=== PATIENT | male | born 1960 | race African-American/Black ===

== ENCOUNTER 2022-06-12 08:20 | Inpatient (IN) | payer OTHER ==
[2022-06-12 09:04] VITALS: BMI 18.3
[2022-06-12] MEDS ORDERED: METHOCARBAMOL 500 MG TABLET PO PRN (09:31)
[2022-06-12] MEDS ORDERED: ACETAMINOPHEN 325 MG TABLET (FP) PO PRN ×2 (09:31)
[2022-06-12] MEDS ORDERED: MAGNESIUM HYDROX 2400MG/30ML ORAL SUSPENSION 30 ML CUP PO PRN (09:31)
[2022-06-12] MEDS ORDERED: DICYCLOMINE HCL 10 MG CAPSULE PO PRN (09:31)
[2022-06-12] MEDS ORDERED: IBUPROFEN 400 MG TABLET (FP) PO PRN (09:31)
[2022-06-12] MEDS ORDERED: BENZOCAINE/MENTHOL (CHLORASEPTIC ) LOZENGE MM PRN (09:31)
[2022-06-12] MEDS ORDERED: LOPERAMIDE HCL 2 MG CAPSULE PO PRN (09:31)
[2022-06-12] MEDS ORDERED: IBUPROFEN 600 MG TABLET (FP) PO PRN (09:31)
[2022-06-12] MEDS ORDERED: NICOTINE 10 MG CARTRIDGE (INHALER) IH PRN (09:31)
[2022-06-12] MEDS ORDERED: ONDANSETRON *ODT* 4 MG TABLET SL PRN (09:31)
[2022-06-12] MEDS ORDERED: MAGNESIUM CITRATE 300 ML BOTTLE PO PRN (09:31)
[2022-06-12] MEDS ORDERED: chlordiazePOXIDE HCL 25 MG CAPSULE PO PRN (09:31)
[2022-06-12] MEDS ORDERED: BISMUTH SUBSALICYLATE 262 MG/15 ML BTL PO PRN (09:31)
[2022-06-12] MEDS ORDERED: MAG HYDROX/AL HYDROX/SIMETH 30 ML UNIT-DOSE CUP PO PRN (09:31)
[2022-06-12] MEDS ORDERED: ALBUTEROL SO4 HFA INHALER IH PRN (10:27)
[2022-06-12] MEDS ORDERED: CHOLECALCIFEROL (VIT D3) 400 UNIT (10 MCG) TABLET PO SCH (10:30)
[2022-06-12] MEDS ORDERED: chlordiazePOXIDE HCL 25 MG CAPSULE PO SCH (11:00)
[2022-06-12] MEDS: SULFAMETHOXAZOLE/TRIMETHOPRIM 800MG/160MG D.S. TABLET PO SCH ×2 (12:07→23:35)
[2022-06-12] MEDS: PRENATAL VITAMINS W/ FOLIC ACID TABLET (FP) PO SCH (12:08)
[2022-06-12] MEDS: hydrOXYzine PAMOATE 25 MG CAPSULE (FP) PO SCH ×4 (12:08→23:36)
[2022-06-12] MEDS: chlordiazePOXIDE HCL 25 MG CAPSULE PO SCH ×3 (12:08→23:35)
[2022-06-12] MEDS: NICOTINE 14 MG/24 HOURS TOPICAL PATCH TD SCH (12:09)
[2022-06-12 15:16] LABS: HEMATOCRIT 39.5 % (35.4-49); HEMOGLOBIN 13.5 GM/dL (11.7-16.9); MCH 29.9 pg (25.7-33.7); MCHC 34.1 g/dl (32.0-35.9); MEAN CELL VOLUME 87.7 fl (80-96); MEAN PLT VOLUME 9.2 fl (7.5-11.1); PLATELET COUNT 216 10^3/uL (134-434); RDW 14.5 % (11.9-15.9); WHITE BLOOD COUNT 7.8 K/mm3 (4.0-10.0)
[2022-06-12 15:36] LABS: CALCIUM 8.7 mg/dL (8.5-10.1)
[2022-06-12 15:37] LABS: ALBUMIN 3.1 g/dl (3.4-5.0); BLOOD UREA NITROGEN 13.9 mg/dL (7-18)
[2022-06-12 15:40] LABS: CREATININE 0.8 mg/dL (0.55-1.3)
[2022-06-12 15:41] LABS: BILIRUBIN,TOTAL 0.7 mg/dL (0.2-1); TOT PROT 8.5 g/dl (6.4-8.2)
[2022-06-12] MEDS: THIAMINE HCL 100 MG TABLET (FP) PO SCH (23:35)
[2022-06-12] MEDS: MELATONIN 5 MG TABLETS PO SCH (23:35)
[2022-06-12] MEDS: ROSUVASTATIN CA 20 MG TABLET PO SCH (23:35)
[2022-06-13] MEDS: hydrOXYzine PAMOATE 25 MG CAPSULE (FP) PO SCH ×5 (05:33→22:36)
[2022-06-13] MEDS: chlordiazePOXIDE HCL 25 MG CAPSULE PO SCH (05:33)
[2022-06-13] MEDS ORDERED: LORazepam 1 MG TABLET PO PRN (10:48)
[2022-06-13] MEDS: PRENATAL VITAMINS W/ FOLIC ACID TABLET (FP) PO SCH (11:14)
[2022-06-13] MEDS: BICTEGRAV/EMTRICIT/TENOFOV (BIKTARVY) 50-200-25 MG TABLET PO SCH (11:15)
[2022-06-13] MEDS: NICOTINE 14 MG/24 HOURS TOPICAL PATCH TD SCH (11:15)
[2022-06-13] MEDS: PANTOPRAZOLE 20 MG TABLET PO SCH (11:15)
[2022-06-13] MEDS: SULFAMETHOXAZOLE/TRIMETHOPRIM 800MG/160MG D.S. TABLET PO SCH ×2 (11:15→22:36)
[2022-06-13] MEDS: LORazepam 2 MG TABLET PO SCH ×3 (11:17→22:36)
[2022-06-13] MEDS: ROSUVASTATIN CA 20 MG TABLET PO SCH (22:36)
[2022-06-13] MEDS: MELATONIN 5 MG TABLETS PO SCH (22:36)
[2022-06-13] MEDS: THIAMINE HCL 100 MG TABLET (FP) PO SCH (22:36)
[2022-06-14] MEDS ORDERED: chlordiazePOXIDE HCL 25 MG CAPSULE PO SCH (05:00)
[2022-06-14] MEDS: hydrOXYzine PAMOATE 25 MG CAPSULE (FP) PO SCH ×5 (06:05→22:22)
[2022-06-14] MEDS: LORazepam 2 MG TABLET PO SCH ×4 (06:05→22:21)
[2022-06-14] MEDS: BICTEGRAV/EMTRICIT/TENOFOV (BIKTARVY) 50-200-25 MG TABLET PO SCH (10:34)
[2022-06-14] MEDS: NICOTINE 14 MG/24 HOURS TOPICAL PATCH TD SCH (10:34)
[2022-06-14] MEDS: PRENATAL VITAMINS W/ FOLIC ACID TABLET (FP) PO SCH (10:34)
[2022-06-14] MEDS: SULFAMETHOXAZOLE/TRIMETHOPRIM 800MG/160MG D.S. TABLET PO SCH ×2 (10:34→22:20)
[2022-06-14] MEDS: PANTOPRAZOLE 20 MG TABLET PO SCH (10:34)
[2022-06-14] MEDS: THIAMINE HCL 100 MG TABLET (FP) PO SCH (22:20)
[2022-06-14] MEDS: ROSUVASTATIN CA 20 MG TABLET PO SCH (22:21)
[2022-06-14] MEDS: MELATONIN 5 MG TABLETS PO SCH (22:22)
[2022-06-15] MEDS ORDERED: chlordiazePOXIDE HCL 10 MG CAPSULE PO PRN
[2022-06-15] MEDS ORDERED: chlordiazePOXIDE HCL 10 MG CAPSULE PO SCH (05:00)
[2022-06-15] MEDS: LORazepam 1 MG TABLET PO SCH ×3 (07:21→17:57)
[2022-06-15] MEDS: hydrOXYzine PAMOATE 25 MG CAPSULE (FP) PO SCH ×4 (07:21→17:57)
[2022-06-15 09:35] VITALS: RESP 18
[2022-06-15] MEDS: SULFAMETHOXAZOLE/TRIMETHOPRIM 800MG/160MG D.S. TABLET PO SCH (10:24)
[2022-06-15] MEDS: BICTEGRAV/EMTRICIT/TENOFOV (BIKTARVY) 50-200-25 MG TABLET PO SCH (10:24)
[2022-06-15] MEDS: PRENATAL VITAMINS W/ FOLIC ACID TABLET (FP) PO SCH (10:24)
[2022-06-15] MEDS: NICOTINE 14 MG/24 HOURS TOPICAL PATCH TD SCH (10:25)
[2022-06-15] MEDS: PANTOPRAZOLE 20 MG TABLET PO SCH (10:25)
[2022-06-15 17:25] VITALS: BP 163/91; PULSE 74; TEMP 98.2
[2022-06-16] MEDS ORDERED: LORazepam 0.5 MG TABLET PO PRN
[2022-06-16] MEDS ORDERED: LORazepam 0.5 MG TABLET PO SCH (05:00)
[2022-06-16] MEDS ORDERED: chlordiazePOXIDE HCL 10 MG CAPSULE PO SCH (05:00)
[2022-06-17] MEDS ORDERED: LORazepam 0.5 MG TABLET PO ONE (05:00)
[2022-06-17] MEDS ORDERED: chlordiazePOXIDE HCL 10 MG CAPSULE PO ONE (05:00)
== END 2022-06-15 19:46 | disposition left against medical advice (07) | DRG 770 ==
LOC: YASAS 08:20 → Y3N 09:47
PROVIDERS: ADMIT Allergy & Immunology; ATTEND Surgery
PROC: HZ2ZZZZ Detoxification Services for Substance Abuse Treatment (ICD-10-PCS; principal; 2022-06-12)
DX: F10.230 Alcohol dependence with withdrawal, uncomplicated (principal); F12.20 Cannabis dependence, uncomplicated; F17.210 Nicotine dependence, cigarettes, uncomplicated; I10 Essential (primary) hypertension; E78.5 Hyperlipidemia, unspecified; J45.909 Unspecified asthma, uncomplicated; Z21 Asymptomatic human immunodeficiency virus [HIV] infection status; K21.9 Gastro-esophageal reflux disease without esophagitis; Z88.8 Allergy status to other drugs, medicaments and biological substances
CPT/HCPCS: 36415; 80053; 85027; 86780; 87811; 93005; 93010; C9803-CS; U0003; U0005

== ENCOUNTER 2022-08-22 11:03 | Inpatient (IN) | payer OTHER ==
[2022-08-22 12:40] VITALS: BMI 18.1
[2022-08-22] MEDS ORDERED: ALBUTEROL SO4 HFA INHALER IH PRN (12:57)
[2022-08-22] MEDS ORDERED: CHOLECALCIFEROL (VIT D3) 400 UNIT (10 MCG) TABLET PO SCH (13:00)
[2022-08-22] MEDS ORDERED: IBUPROFEN 400 MG TABLET (FP) PO PRN (13:03)
[2022-08-22] MEDS ORDERED: NALOXONE HCL (KLOXXADO) 8 MG SPRAY NS PRN (13:03)
[2022-08-22] MEDS ORDERED: P-EPHED 60MG/TRIPROLIDI 2.5MG TABLET PO PRN (13:03)
[2022-08-22] MEDS ORDERED: METHOCARBAMOL 500 MG TABLET PO PRN (13:03)
[2022-08-22] MEDS ORDERED: guaiFENesin 200 MG/10 ML 10 ML UNIT-DOSE CUPS PO PRN (13:03)
[2022-08-22] MEDS ORDERED: MAG HYDROX/AL HYDROX/SIMETH 30 ML UNIT-DOSE CUP PO PRN (13:03)
[2022-08-22] MEDS ORDERED: ONDANSETRON *ODT* 4 MG TABLET SL PRN (13:03)
[2022-08-22] MEDS ORDERED: BENZOCAINE/MENTHOL (CHLORASEPTIC ) LOZENGE MM PRN (13:03)
[2022-08-22] MEDS ORDERED: MAGNESIUM CITRATE 300 ML BOTTLE PO PRN (13:03)
[2022-08-22] MEDS ORDERED: IBUPROFEN 600 MG TABLET (FP) PO PRN (13:03)
[2022-08-22] MEDS ORDERED: NALOXONE HCL 0.4 MG/ML VIAL IM PRN (13:03)
[2022-08-22] MEDS ORDERED: ACETAMINOPHEN 325 MG TABLET (FP) PO PRN ×2 (13:03)
[2022-08-22] MEDS ORDERED: DICYCLOMINE HCL 10 MG CAPSULE PO PRN (13:03)
[2022-08-22] MEDS ORDERED: MAGNESIUM HYDROX 2400MG/30ML ORAL SUSPENSION 30 ML CUP PO PRN (13:03)
[2022-08-22] MEDS ORDERED: BISMUTH SUBSALICYLATE 524 MG/30 ML PO PRN (13:03)
[2022-08-22] MEDS ORDERED: LOPERAMIDE HCL 2 MG CAPSULE PO PRN (13:03)
[2022-08-22] MEDS ORDERED: MELATONIN 5 MG TABLETS PO PRN (13:03)
[2022-08-22] MEDS ORDERED: NICOTINE POLACRILEX 2 MG GUM BUC PRN (13:03)
[2022-08-22] MEDS ORDERED: diazePAM 5 MG TABLET PO PRN (13:05)
[2022-08-22] MEDS: BICTEGRAV/EMTRICIT/TENOFOV (BIKTARVY) 50-200-25 MG TABLET PO SCH (15:00)
[2022-08-22] MEDS: hydrOXYzine PAMOATE 25 MG CAPSULE (FP) PO PRN (15:00)
[2022-08-22] MEDS: diazePAM 5 MG TABLET PO SCH ×2 (17:18→22:19)
[2022-08-22] MEDS: BACITRACIN 15 GM TUBE TOPICAL OINTMENT TP SCH (22:19)
[2022-08-22] MEDS: THIAMINE HCL 100 MG TABLET (FP) PO SCH (22:19)
[2022-08-22] MEDS: TOLNAFTATE 1% CREAM 15 GM TUBE TP SCH (22:20)
[2022-08-23] MEDS: diazePAM 5 MG TABLET PO SCH ×4 (05:15→22:43)
[2022-08-23 09:58] LABS: ALBUMIN 2.9 g/dl (3.4-5.0); CALCIUM 8.9 mg/dL (8.5-10.1)
[2022-08-23 10:02] LABS: HEMATOCRIT 37.5 % (35.4-49); HEMOGLOBIN 12.5 GM/dL (11.7-16.9); MCH 29.6 pg (25.7-33.7); MCHC 33.3 g/dl (32.0-35.9); MEAN CELL VOLUME 88.9 fl (80-96); MEAN PLT VOLUME 8.7 fl (7.5-11.1); PLATELET COUNT 250 10^3/uL (134-434); RBC 4.22 M/mm3 (4.00-5.60); RDW 14.5 % (11.9-15.9); TOT PROT 7.1 g/dl (6.4-8.2); WHITE BLOOD COUNT 4.7 K/mm3 (4.0-10.0)
[2022-08-23 10:04] LABS: BILIRUBIN,TOTAL 0.4 mg/dL (0.2-1)
[2022-08-23] MEDS: BACITRACIN 15 GM TUBE TOPICAL OINTMENT TP SCH ×2 (10:09→22:42)
[2022-08-23] MEDS: TOLNAFTATE 1% CREAM 15 GM TUBE TP SCH ×2 (10:10→22:42)
[2022-08-23] MEDS: BICTEGRAV/EMTRICIT/TENOFOV (BIKTARVY) 50-200-25 MG TABLET PO SCH (10:10)
[2022-08-23] MEDS: PANTOPRAZOLE 20 MG TABLET PO SCH (10:11)
[2022-08-23] MEDS: PRENATAL VITAMINS W/ FOLIC ACID TABLET (FP) PO SCH (10:13)
[2022-08-23] MEDS ORDERED: PNEUMOC 20-VAL CONJ-DIP CRM/PF 0.5 ML SYRINGE IM ONE (12:00)
[2022-08-23] MEDS: hydrOXYzine PAMOATE 25 MG CAPSULE (FP) PO PRN (17:28)
[2022-08-23] MEDS: THIAMINE HCL 100 MG TABLET (FP) PO SCH (22:42)
[2022-08-24] MEDS: diazePAM 5 MG TABLET PO SCH ×2 (07:00→13:47)
[2022-08-24] MEDS: BICTEGRAV/EMTRICIT/TENOFOV (BIKTARVY) 50-200-25 MG TABLET PO SCH (07:02)
[2022-08-24 09:19] VITALS: RESP 17
[2022-08-24] MEDS: PRENATAL VITAMINS W/ FOLIC ACID TABLET (FP) PO SCH (10:21)
[2022-08-24] MEDS: PANTOPRAZOLE 20 MG TABLET PO SCH (10:22)
[2022-08-24] MEDS: TOLNAFTATE 1% CREAM 15 GM TUBE TP SCH (10:22)
[2022-08-24] MEDS: BACITRACIN 15 GM TUBE TOPICAL OINTMENT TP SCH (10:23)
[2022-08-24] MEDS ORDERED: FLU VACC QS2022-23(6MOS UP)/PF 60 MCG/0.5 ML SYRINGE IM ONE (12:00)
[2022-08-24 14:07] VITALS: BP 132/81; PULSE 85; TEMP 97.4
[2022-08-25] MEDS ORDERED: diazePAM 5 MG TABLET PO SCH (06:00)
[2022-08-26] MEDS ORDERED: diazePAM 5 MG TABLET PO ONE (06:00)
== END 2022-08-24 15:15 | disposition left against medical advice (07) | DRG 770 ==
LOC: YASAS 11:03 → Y6N 13:57
PROVIDERS: ADMIT Allergy & Immunology; ATTEND Surgery
PROC: HZ2ZZZZ Detoxification Services for Substance Abuse Treatment (ICD-10-PCS; principal; 2022-08-22)
DX: F10.230 Alcohol dependence with withdrawal, uncomplicated (principal); F14.20 Cocaine dependence, uncomplicated; F17.210 Nicotine dependence, cigarettes, uncomplicated; F25.9 Schizoaffective disorder, unspecified; F19.24 Other psychoactive substance dependence with psychoactive substance-induced mood disorder; Z21 Asymptomatic human immunodeficiency virus [HIV] infection status; I10 Essential (primary) hypertension; J45.909 Unspecified asthma, uncomplicated; K21.9 Gastro-esophageal reflux disease without esophagitis; L85.3 Xerosis cutis
CPT/HCPCS: 36415; 80053; 85027; 90677; C9803-CS; U0003; U0005

== ENCOUNTER 2022-09-25 13:06 | Inpatient (IN) | payer OTHER ==
[2022-09-25 15:20] VITALS: BMI 18.7
[2022-09-25] MEDS ORDERED: DICYCLOMINE HCL 10 MG CAPSULE PO PRN (16:51)
[2022-09-25] MEDS ORDERED: NICOTINE 10 MG CARTRIDGE (INHALER) IH PRN (16:51)
[2022-09-25] MEDS ORDERED: MAG HYDROX/AL HYDROX/SIMETH 30 ML UNIT-DOSE CUP PO PRN (16:51)
[2022-09-25] MEDS ORDERED: NALOXONE HCL (KLOXXADO) 8 MG SPRAY NS PRN (16:51)
[2022-09-25] MEDS ORDERED: ACETAMINOPHEN 325 MG TABLET (FP) PO PRN ×2 (16:51)
[2022-09-25] MEDS ORDERED: hydrOXYzine PAMOATE 25 MG CAPSULE (FP) PO PRN (16:51)
[2022-09-25] MEDS ORDERED: chlordiazePOXIDE HCL 25 MG CAPSULE PO PRN (16:51)
[2022-09-25] MEDS ORDERED: IBUPROFEN 600 MG TABLET (FP) PO PRN (16:51)
[2022-09-25] MEDS ORDERED: BENZOCAINE/MENTHOL (CHLORASEPTIC ) LOZENGE MM PRN (16:51)
[2022-09-25] MEDS ORDERED: LOPERAMIDE HCL 2 MG CAPSULE PO PRN (16:51)
[2022-09-25] MEDS ORDERED: MAGNESIUM HYDROX 2400MG/30ML ORAL SUSPENSION 30 ML CUP PO PRN (16:51)
[2022-09-25] MEDS ORDERED: BISMUTH SUBSALICYLATE 524 MG/30 ML PO PRN (16:51)
[2022-09-25] MEDS ORDERED: MAGNESIUM CITRATE 300 ML BOTTLE PO PRN (16:51)
[2022-09-25] MEDS ORDERED: ONDANSETRON *ODT* 4 MG TABLET SL PRN (16:51)
[2022-09-25] MEDS ORDERED: METHOCARBAMOL 500 MG TABLET PO PRN (16:51)
[2022-09-25] MEDS ORDERED: IBUPROFEN 400 MG TABLET (FP) PO PRN (16:51)
[2022-09-25] MEDS ORDERED: ALBUTEROL SO4 HFA INHALER IH PRN (16:57)
[2022-09-25] MEDS ORDERED: diphenhydrAMINE HCL 25 MG CAPSULE (FP) PO ONE ×2 (17:51→17:53)
[2022-09-25] MEDS ORDERED: chlordiazePOXIDE HCL 25 MG CAPSULE ONE ×2 (17:51→23:33)
[2022-09-25] MEDS: chlordiazePOXIDE HCL 25 MG CAPSULE PO SCH ×2 (17:56→23:35)
[2022-09-25] MEDS: MELATONIN 5 MG TABLETS PO SCH (23:35)
[2022-09-25] MEDS: THIAMINE HCL 100 MG TABLET (FP) PO SCH (23:35)
[2022-09-26] MEDS: NICOTINE 14 MG/24 HOURS TOPICAL PATCH TD SCH ×2 (04:56→09:53)
[2022-09-26] MEDS: ROSUVASTATIN CA 20 MG TABLET PO SCH ×2 (04:57→22:10)
[2022-09-26] MEDS: CLOTRIMAZOLE 10 MG TROCHE PO SCH ×3 (04:59→22:10)
[2022-09-26] MEDS ORDERED: chlordiazePOXIDE HCL 25 MG CAPSULE ONE (05:00)
[2022-09-26] MEDS: chlordiazePOXIDE HCL 25 MG CAPSULE PO SCH ×4 (05:22→22:09)
[2022-09-26] MEDS: BICTEGRAV/EMTRICIT/TENOFOV (BIKTARVY) 50-200-25 MG TABLET PO SCH (09:55)
[2022-09-26] MEDS: PANTOPRAZOLE 20 MG TABLET PO SCH (09:56)
[2022-09-26] MEDS: PRENATAL VITAMINS W/ FOLIC ACID TABLET (FP) PO SCH (09:58)
[2022-09-26] MEDS ORDERED: MINERAL OIL/PET HY-PHL TOPICAL OINTMENT 454 GM JAR TP SCH (10:00)
[2022-09-26] MEDS ORDERED: SOMATROPIN 6 MG SQ SCH (10:00)
[2022-09-26] MEDS ORDERED: CHOLECALCIFEROL (VIT D3) 400 UNIT (10 MCG) TABLET PO SCH (10:00)
[2022-09-26 11:13] LABS: HEMATOCRIT 38.7 % (35.4-49); HEMOGLOBIN 12.7 GM/dL (11.7-16.9); MCH 28.6 pg (25.7-33.7); MCHC 32.8 g/dl (32.0-35.9); MEAN CELL VOLUME 87.1 fl (80-96); MEAN PLT VOLUME 9.3 fl (7.5-11.1); PLATELET COUNT 241 10^3/uL (134-434); RBC 4.45 M/mm3 (4.00-5.60); RDW 14.3 % (11.9-15.9)
[2022-09-26 12:43] LABS: ALBUMIN 3.1 g/dl (3.4-5.0); CALCIUM 8.9 mg/dL (8.5-10.1)
[2022-09-26 12:44] LABS: BLOOD UREA NITROGEN 15.7 mg/dL (7-18)
[2022-09-26 12:46] LABS: CREATININE 0.9 mg/dL (0.55-1.3)
[2022-09-26 12:48] LABS: BILIRUBIN,TOTAL 0.4 mg/dL (0.2-1); TOT PROT 7.3 g/dl (6.4-8.2)
[2022-09-26] MEDS: PETROLATUM,WHITE OINTMENT 3.5 OZ JAR TP SCH (15:27)
[2022-09-26] MEDS: MELATONIN 5 MG TABLETS PO SCH (22:10)
[2022-09-26] MEDS: THIAMINE HCL 100 MG TABLET (FP) PO SCH (22:10)
[2022-09-27] MEDS: chlordiazePOXIDE HCL 25 MG CAPSULE PO SCH ×4 (05:16→22:23)
[2022-09-27] MEDS: PETROLATUM,WHITE OINTMENT 3.5 OZ JAR TP SCH (10:08)
[2022-09-27] MEDS: PRENATAL VITAMINS W/ FOLIC ACID TABLET (FP) PO SCH (10:10)
[2022-09-27] MEDS: PANTOPRAZOLE 20 MG TABLET PO SCH (10:10)
[2022-09-27] MEDS: CLOTRIMAZOLE 10 MG TROCHE PO SCH ×2 (10:10→22:26)
[2022-09-27] MEDS: BICTEGRAV/EMTRICIT/TENOFOV (BIKTARVY) 50-200-25 MG TABLET PO SCH (10:10)
[2022-09-27] MEDS: NICOTINE 14 MG/24 HOURS TOPICAL PATCH TD SCH (10:13)
[2022-09-27] MEDS ORDERED: COLLOIDAL OATMEAL 1 BAR EACH TP PRN (10:53)
[2022-09-27] MEDS: THIAMINE HCL 100 MG TABLET (FP) PO SCH (22:22)
[2022-09-27] MEDS: ROSUVASTATIN CA 20 MG TABLET PO SCH (22:22)
[2022-09-27] MEDS: MELATONIN 5 MG TABLETS PO SCH (22:24)
[2022-09-28] MEDS ORDERED: chlordiazePOXIDE HCL 10 MG CAPSULE PO PRN
[2022-09-28 01:40] VITALS: RESP 18; TEMP 97.8
[2022-09-28] MEDS ORDERED: chlordiazePOXIDE HCL 10 MG CAPSULE PO SCH (05:00)
[2022-09-28 06:07] VITALS: BP 121/70; PULSE 86
[2022-09-29] MEDS ORDERED: chlordiazePOXIDE HCL 10 MG CAPSULE PO SCH (05:00)
[2022-09-30] MEDS ORDERED: chlordiazePOXIDE HCL 10 MG CAPSULE PO ONE (05:00)
== END 2022-09-28 07:15 | disposition left against medical advice (07) | DRG 774 ==
LOC: YASAS 13:06 → Y3N 09-26 09:21
PROVIDERS: ADMIT Allergy & Immunology; ATTEND Surgery
PROC: HZ2ZZZZ Detoxification Services for Substance Abuse Treatment (ICD-10-PCS; principal; 2022-09-26)
DX: F10.230 Alcohol dependence with withdrawal, uncomplicated (principal); F14.20 Cocaine dependence, uncomplicated; F12.20 Cannabis dependence, uncomplicated; F17.210 Nicotine dependence, cigarettes, uncomplicated; Z21 Asymptomatic human immunodeficiency virus [HIV] infection status; E78.5 Hyperlipidemia, unspecified; I10 Essential (primary) hypertension; J45.909 Unspecified asthma, uncomplicated; K21.9 Gastro-esophageal reflux disease without esophagitis; F91.8 Other conduct disorders; Z91.199 Patient's noncompliance with other medical treatment and regimen due to unspecified reason; Z91.018 Allergy to other foods
CPT/HCPCS: 36415; 80053; 85027; 86780; C9803-CS; U0003; U0005

== ENCOUNTER 2022-12-12 15:09 | Inpatient (IN) | payer OTHER ==
[2022-12-12 17:34] VITALS: BMI 19.2
[2022-12-12] MEDS ORDERED: LOPERAMIDE HCL 2 MG CAPSULE PO PRN (20:11)
[2022-12-12] MEDS ORDERED: BISMUTH SUBSALICYLATE 524 MG/30 ML PO PRN (20:11)
[2022-12-12] MEDS ORDERED: MAGNESIUM HYDROX 2400MG/30ML ORAL SUSPENSION 30 ML CUP PO PRN (20:11)
[2022-12-12] MEDS ORDERED: MAG HYDROX/AL HYDROX/SIMETH 30 ML UNIT-DOSE CUP PO PRN (20:11)
[2022-12-12] MEDS ORDERED: NICOTINE POLACRILEX 2 MG GUM BUC PRN (20:11)
[2022-12-12] MEDS ORDERED: IBUPROFEN 400 MG TABLET (FP) PO PRN (20:11)
[2022-12-12] MEDS ORDERED: NALOXONE HCL (KLOXXADO) 8 MG SPRAY NS PRN (20:11)
[2022-12-12] MEDS ORDERED: BENZOCAINE/MENTHOL (CHLORASEPTIC ) LOZENGE MM PRN (20:11)
[2022-12-12] MEDS ORDERED: IBUPROFEN 600 MG TABLET (FP) PO PRN (20:11)
[2022-12-12] MEDS ORDERED: ACETAMINOPHEN 325 MG TABLET (FP) PO PRN (20:11)
[2022-12-12] MEDS ORDERED: POLYETHYLENE GLYCOL (HEALTHYLAX) 3350 17 GM PACKET PO PRN (20:11)
[2022-12-12] MEDS ORDERED: ONDANSETRON *ODT* 4 MG TABLET SL PRN (20:11)
[2022-12-12] MEDS ORDERED: DICYCLOMINE HCL 10 MG CAPSULE PO PRN (20:11)
[2022-12-12] MEDS ORDERED: ALBUTEROL SO4 HFA INHALER IH PRN (20:14)
[2022-12-12] MEDS: THIAMINE HCL 100 MG TABLET (FP) PO SCH (22:11)
[2022-12-12] MEDS: MELATONIN 5 MG TABLETS PO SCH (22:11)
[2022-12-13] MEDS: BICTEGRAV/EMTRICIT/TENOFOV (BIKTARVY) 50-200-25 MG TABLET PO SCH (11:00)
[2022-12-13] MEDS: NICOTINE 14 MG/24 HOURS TOPICAL PATCH TD SCH (11:00)
[2022-12-13] MEDS: PANTOPRAZOLE 20 MG TABLET PO SCH (11:00)
[2022-12-13] MEDS: PRENATAL VITAMINS W/ FOLIC ACID TABLET (FP) PO SCH (11:00)
[2022-12-13 11:55] LABS: HEMATOCRIT 34.1 % (35.4-49); HEMOGLOBIN 11.6 GM/dL (11.7-16.9); MCHC 34.1 g/dl (32.0-35.9); MEAN CELL VOLUME 88.1 fl (80-96); MEAN PLT VOLUME 9.1 fl (7.5-11.1); PLATELET COUNT 240 10^3/uL (134-434); RBC 3.88 M/mm3 (4.00-5.60); RDW 14.1 % (11.9-15.9); WHITE BLOOD COUNT 6.5 K/mm3 (4.0-10.0)
[2022-12-13 12:10] LABS: ALBUMIN 2.8 g/dl (3.4-5.0); BLOOD UREA NITROGEN 12.6 mg/dL (7-18)
[2022-12-13 12:13] LABS: CREATININE 0.9 mg/dL (0.55-1.3)
[2022-12-13 12:14] LABS: TOT PROT 7.1 g/dl (6.4-8.2)
[2022-12-13 12:17] LABS: BILIRUBIN,TOTAL 0.4 mg/dL (0.2-1)
[2022-12-13] MEDS: MELATONIN 5 MG TABLETS PO SCH (22:25)
[2022-12-13] MEDS: THIAMINE HCL 100 MG TABLET (FP) PO SCH (22:25)
[2022-12-13] MEDS: METHOCARBAMOL 500 MG TABLET PO PRN (22:25)
[2022-12-13] MEDS: hydrOXYzine PAMOATE 25 MG CAPSULE (FP) PO PRN (22:25)
[2022-12-13] MEDS ORDERED: ALBUTEROL SO4 HFA INHALER IH PRN (23:09)
[2022-12-13] MEDS ORDERED: chlordiazePOXIDE HCL 25 MG CAPSULE PO PRN (23:11)
[2022-12-13] MEDS: ROSUVASTATIN CA 20 MG TABLET PO SCH (23:43)
[2022-12-13] MEDS: chlordiazePOXIDE HCL 25 MG CAPSULE PO SCH (23:43)
[2022-12-13] MEDS: ACETAMINOPHEN 325 MG TABLET (FP) PO PRN (23:50)
[2022-12-14] MEDS: chlordiazePOXIDE HCL 25 MG CAPSULE PO SCH ×4 (05:38→22:09)
[2022-12-14] MEDS: METHOCARBAMOL 500 MG TABLET PO PRN (10:13)
[2022-12-14] MEDS: PANTOPRAZOLE 20 MG TABLET PO SCH (10:13)
[2022-12-14] MEDS: BICTEGRAV/EMTRICIT/TENOFOV (BIKTARVY) 50-200-25 MG TABLET PO SCH (10:13)
[2022-12-14] MEDS: PRENATAL VITAMINS W/ FOLIC ACID TABLET (FP) PO SCH (10:13)
[2022-12-14] MEDS: ACETAMINOPHEN 325 MG TABLET (FP) PO PRN (10:16)
[2022-12-14] MEDS: NICOTINE 14 MG/24 HOURS TOPICAL PATCH TD SCH (11:14)
[2022-12-14] MEDS: CLOTRIMAZOLE 10 MG TROCHE PO SCH ×2 (11:47→22:07)
[2022-12-14] MEDS: MELATONIN 5 MG TABLETS PO SCH (22:08)
[2022-12-14] MEDS: THIAMINE HCL 100 MG TABLET (FP) PO SCH (22:08)
[2022-12-14] MEDS: ROSUVASTATIN CA 20 MG TABLET PO SCH (22:08)
[2022-12-15] MEDS: chlordiazePOXIDE HCL 25 MG CAPSULE PO SCH ×4 (06:17→22:08)
[2022-12-15] MEDS: BICTEGRAV/EMTRICIT/TENOFOV (BIKTARVY) 50-200-25 MG TABLET PO SCH (10:41)
[2022-12-15] MEDS: NICOTINE 14 MG/24 HOURS TOPICAL PATCH TD SCH (10:41)
[2022-12-15] MEDS: CLOTRIMAZOLE 10 MG TROCHE PO SCH ×2 (10:41→22:27)
[2022-12-15] MEDS: PANTOPRAZOLE 20 MG TABLET PO SCH (10:41)
[2022-12-15] MEDS: PRENATAL VITAMINS W/ FOLIC ACID TABLET (FP) PO SCH (10:42)
[2022-12-15] MEDS: ACETAMINOPHEN 325 MG TABLET (FP) PO PRN ×2 (11:31→23:29)
[2022-12-15] MEDS: ROSUVASTATIN CA 20 MG TABLET PO SCH (22:26)
[2022-12-15] MEDS: MELATONIN 5 MG TABLETS PO SCH (22:27)
[2022-12-15] MEDS: THIAMINE HCL 100 MG TABLET (FP) PO SCH (22:27)
[2022-12-16] MEDS ORDERED: chlordiazePOXIDE HCL 10 MG CAPSULE PO PRN
[2022-12-16] MEDS: chlordiazePOXIDE HCL 10 MG CAPSULE PO SCH ×4 (05:28→22:04)
[2022-12-16] MEDS: ACETAMINOPHEN 325 MG TABLET (FP) PO PRN (10:16)
[2022-12-16] MEDS: PRENATAL VITAMINS W/ FOLIC ACID TABLET (FP) PO SCH (10:16)
[2022-12-16] MEDS: BICTEGRAV/EMTRICIT/TENOFOV (BIKTARVY) 50-200-25 MG TABLET PO SCH (10:18)
[2022-12-16] MEDS: hydrOXYzine PAMOATE 25 MG CAPSULE (FP) PO PRN (10:42)
[2022-12-16] MEDS: NICOTINE 14 MG/24 HOURS TOPICAL PATCH TD SCH (10:42)
[2022-12-16] MEDS: PANTOPRAZOLE 20 MG TABLET PO SCH (10:42)
[2022-12-16] MEDS: METHOCARBAMOL 500 MG TABLET PO PRN (10:42)
[2022-12-16] MEDS: CLOTRIMAZOLE 10 MG TROCHE PO SCH ×2 (10:46→22:04)
[2022-12-16] MEDS: THIAMINE HCL 100 MG TABLET (FP) PO SCH (22:03)
[2022-12-16] MEDS: ROSUVASTATIN CA 20 MG TABLET PO SCH (22:03)
[2022-12-16] MEDS: MELATONIN 5 MG TABLETS PO SCH (22:28)
[2022-12-17] MEDS: chlordiazePOXIDE HCL 10 MG CAPSULE PO SCH ×2 (05:52→17:58)
[2022-12-17] MEDS: ACETAMINOPHEN 325 MG TABLET (FP) PO PRN ×2 (10:04→17:59)
[2022-12-17] MEDS: NICOTINE 14 MG/24 HOURS TOPICAL PATCH TD SCH (10:07)
[2022-12-17] MEDS: PANTOPRAZOLE 20 MG TABLET PO SCH (10:07)
[2022-12-17] MEDS: METHOCARBAMOL 500 MG TABLET PO PRN ×2 (10:07→22:29)
[2022-12-17] MEDS: PRENATAL VITAMINS W/ FOLIC ACID TABLET (FP) PO SCH (10:07)
[2022-12-17] MEDS: BICTEGRAV/EMTRICIT/TENOFOV (BIKTARVY) 50-200-25 MG TABLET PO SCH (10:07)
[2022-12-17] MEDS: hydrOXYzine PAMOATE 25 MG CAPSULE (FP) PO PRN ×2 (10:07→22:29)
[2022-12-17] MEDS: CLOTRIMAZOLE 10 MG TROCHE PO SCH ×2 (10:08→22:29)
[2022-12-17] MEDS: MELATONIN 5 MG TABLETS PO SCH (22:29)
[2022-12-17] MEDS: ROSUVASTATIN CA 20 MG TABLET PO SCH (22:29)
[2022-12-17] MEDS: THIAMINE HCL 100 MG TABLET (FP) PO SCH (22:29)
[2022-12-18] MEDS ORDERED: chlordiazePOXIDE HCL 10 MG CAPSULE PO ONE (05:00)
[2022-12-18 09:17] VITALS: BP 157/95; PULSE 84; RESP 18; TEMP 98.6
[2022-12-18] MEDS: BICTEGRAV/EMTRICIT/TENOFOV (BIKTARVY) 50-200-25 MG TABLET PO SCH (09:32)
[2022-12-18] MEDS: hydrOXYzine PAMOATE 25 MG CAPSULE (FP) PO PRN (09:32)
[2022-12-18] MEDS: PANTOPRAZOLE 20 MG TABLET PO SCH (09:32)
[2022-12-18] MEDS: CLOTRIMAZOLE 10 MG TROCHE PO SCH (09:32)
[2022-12-18] MEDS: NICOTINE 14 MG/24 HOURS TOPICAL PATCH TD SCH (09:33)
[2022-12-18] MEDS: PRENATAL VITAMINS W/ FOLIC ACID TABLET (FP) PO SCH (09:33)
== END 2022-12-18 10:45 | disposition home or self-care (01) | DRG 774 ==
LOC: YASAS 15:09 → Y6N 20:46
PROVIDERS: ADMIT Allergy & Immunology; ATTEND Family Medicine
PROC: HZ2ZZZZ Detoxification Services for Substance Abuse Treatment (ICD-10-PCS; principal; 2022-12-12)
DX: F10.230 Alcohol dependence with withdrawal, uncomplicated (principal); F14.20 Cocaine dependence, uncomplicated; F12.20 Cannabis dependence, uncomplicated; F17.210 Nicotine dependence, cigarettes, uncomplicated; F25.9 Schizoaffective disorder, unspecified; F19.24 Other psychoactive substance dependence with psychoactive substance-induced mood disorder; E78.5 Hyperlipidemia, unspecified; I10 Essential (primary) hypertension; J45.909 Unspecified asthma, uncomplicated; K21.9 Gastro-esophageal reflux disease without esophagitis
CPT/HCPCS: 36415; 80053; 85027; 86780; C9803-CS; U0003; U0005

== ENCOUNTER 2023-07-01 13:24 | Inpatient (IN) | payer OTHER ==
[2023-07-01 14:23] VITALS: BMI 19.5
[2023-07-01] MEDS ORDERED: NALOXONE HCL (KLOXXADO) 8 MG SPRAY NS PRN (17:02)
[2023-07-01] MEDS ORDERED: LOPERAMIDE HCL 2 MG CAPSULE PO PRN (17:02)
[2023-07-01] MEDS ORDERED: ONDANSETRON *ODT* 4 MG TABLET SL PRN (17:02)
[2023-07-01] MEDS ORDERED: MAGNESIUM HYDROX 2400MG/30ML ORAL SUSPENSION 30 ML CUP PO PRN (17:02)
[2023-07-01] MEDS ORDERED: hydrOXYzine PAMOATE 25 MG CAPSULE (FP) PO PRN (17:02)
[2023-07-01] MEDS ORDERED: NALOXONE HCL 0.4 MG/ML VIAL IM PRN (17:02)
[2023-07-01] MEDS ORDERED: BENZONATATE 200 MG CAPSULE PO PRN (17:02)
[2023-07-01] MEDS ORDERED: BENZOCAINE/MENTHOL (CHLORASEPTIC ) LOZENGE MM PRN (17:02)
[2023-07-01] MEDS ORDERED: ACETAMINOPHEN 325 MG TABLET (FP) PO PRN (17:02)
[2023-07-01] MEDS ORDERED: POLYETHYLENE GLYCOL (HEALTHYLAX) 3350 17 GM PACKET PO PRN (17:02)
[2023-07-01] MEDS ORDERED: METHOCARBAMOL 500 MG TABLET PO PRN (17:02)
[2023-07-01] MEDS ORDERED: BISMUTH SUBSALICYLATE 524 MG/30 ML PO PRN (17:02)
[2023-07-01] MEDS ORDERED: guaiFENesin 600 MG TABLET.ER (FP) PO PRN (17:02)
[2023-07-01] MEDS ORDERED: NICOTINE POLACRILEX 2 MG GUM BUC PRN (17:02)
[2023-07-01] MEDS ORDERED: IBUPROFEN 400 MG TABLET (FP) PO PRN (17:02)
[2023-07-01] MEDS ORDERED: IBUPROFEN 600 MG TABLET (FP) PO PRN (17:02)
[2023-07-01] MEDS ORDERED: MAG HYDROX/AL HYDROX/SIMETH 30 ML UNIT-DOSE CUP PO PRN (17:02)
[2023-07-01] MEDS ORDERED: DICYCLOMINE HCL 10 MG CAPSULE PO PRN (17:02)
[2023-07-01] MEDS ORDERED: ALBUTEROL SO4 HFA INHALER IH PRN (19:34)
[2023-07-01] MEDS ORDERED: MELATONIN 5 MG TABLETS PO SCH (22:00)
[2023-07-01] MEDS ORDERED: ROSUVASTATIN CA 20 MG TABLET PO SCH (22:00)
[2023-07-01] MEDS ORDERED: THIAMINE HCL 100 MG TABLET (FP) PO SCH (22:00)
[2023-07-02 08:52] VITALS: BP 143/98; PULSE 75; RESP 16; TEMP 98.3
[2023-07-02] MEDS ORDERED: PRENATAL VITAMINS W/ FOLIC ACID TABLET (FP) PO SCH (10:00)
== END 2023-07-02 10:33 | disposition home or self-care (01) | DRG 774 ==
LOC: YASAS 13:24 → Y3N 18:40
PROVIDERS: ADMIT Allergy & Immunology; ATTEND Allergy & Immunology
PROC: HZ2ZZZZ Detoxification Services for Substance Abuse Treatment (ICD-10-PCS; principal; 2023-07-01)
DX: F10.20 Alcohol dependence, uncomplicated (principal); F14.20 Cocaine dependence, uncomplicated; F17.210 Nicotine dependence, cigarettes, uncomplicated; Z21 Asymptomatic human immunodeficiency virus [HIV] infection status; I10 Essential (primary) hypertension; E78.5 Hyperlipidemia, unspecified; K21.9 Gastro-esophageal reflux disease without esophagitis; Z88.8 Allergy status to other drugs, medicaments and biological substances; Z91.018 Allergy to other foods
CPT/HCPCS: 87635

== ENCOUNTER 2023-09-19 12:29 | Inpatient (IN) | payer OTHER ==
[2023-09-19 12:49] VITALS: BMI 19.5
[2023-09-19] MEDS ORDERED: ALBUTEROL SO4 HFA INHALER IH PRN (14:20)
[2023-09-19] MEDS ORDERED: AMMONIUM LACTATE 12% LOTION 225 GM BOTTLE TP PRN (14:23)
[2023-09-19] MEDS ORDERED: BICTEGRAV/EMTRICIT/TENOFOV (BIKTARVY) 50-200-25 MG TABLET PO SCH ×2 (14:30→15:36)
[2023-09-19] MEDS ORDERED: POLYETHYLENE GLYCOL (HEALTHYLAX) 3350 17 GM PACKET PO PRN (14:37)
[2023-09-19] MEDS ORDERED: LORazepam 1 MG TABLET PO PRN (14:37)
[2023-09-19] MEDS ORDERED: BENZONATATE 200 MG CAPSULE PO PRN (14:37)
[2023-09-19] MEDS ORDERED: hydrOXYzine PAMOATE 25 MG CAPSULE (FP) PO PRN (14:37)
[2023-09-19] MEDS ORDERED: IBUPROFEN 400 MG TABLET (FP) PO PRN (14:37)
[2023-09-19] MEDS ORDERED: ACETAMINOPHEN 325 MG TABLET (FP) PO PRN (14:37)
[2023-09-19] MEDS ORDERED: COLLOIDAL OATMEAL 1 BAR EACH TP PRN (14:37)
[2023-09-19] MEDS ORDERED: MAG HYDROX/AL HYDROX/SIMETH 30 ML UNIT-DOSE CUP PO PRN (14:37)
[2023-09-19] MEDS ORDERED: NALOXONE HCL 0.4 MG/ML VIAL IVPUSH PRN (14:37)
[2023-09-19] MEDS ORDERED: MAGNESIUM HYDROX 2400MG/30ML ORAL SUSPENSION 30 ML CUP PO PRN (14:37)
[2023-09-19] MEDS ORDERED: NALOXONE HCL (KLOXXADO) 8 MG SPRAY NS PRN (14:37)
[2023-09-19] MEDS ORDERED: IBUPROFEN 600 MG TABLET (FP) PO PRN (14:37)
[2023-09-19] MEDS ORDERED: LOPERAMIDE HCL 2 MG CAPSULE PO PRN (14:37)
[2023-09-19] MEDS ORDERED: BENZOCAINE/MENTHOL (CHLORASEPTIC ) LOZENGE MM PRN (14:37)
[2023-09-19] MEDS ORDERED: METHOCARBAMOL 500 MG TABLET PO PRN (14:37)
[2023-09-19] MEDS ORDERED: guaiFENesin 600 MG TABLET.ER (FP) PO PRN (14:37)
[2023-09-19] MEDS ORDERED: CLOTRIMAZOLE 10 MG TROCHE PO PRN (14:54)
[2023-09-19] MEDS: BACITRACIN 0.9 GM PACKET TP SCH ×2 (15:23→22:35)
[2023-09-19] MEDS: LORazepam 2 MG TABLET PO SCH ×2 (17:12→22:35)
[2023-09-19] MEDS ORDERED: THIAMINE HCL 100 MG TABLET (FP) PO SCH (22:00)
[2023-09-19] MEDS ORDERED: MELATONIN 5 MG TABLETS PO SCH (22:00)
[2023-09-19] MEDS ORDERED: ROSUVASTATIN CA 20 MG TABLET PO SCH (22:00)
[2023-09-20] MEDS: LORazepam 2 MG TABLET PO SCH ×3 (05:53→16:46)
[2023-09-20] MEDS ORDERED: SULFAMETHOXAZOLE/TRIMETHOPRIM 800MG/160MG D.S. TABLET PO SCH (10:00)
[2023-09-20] MEDS ORDERED: HYDROCHLOROTHIAZIDE 12.5 MG CAPSULE (FP) PO SCH (10:00)
[2023-09-20] MEDS ORDERED: PRENATAL VITAMINS W/ FOLIC ACID TABLET (FP) PO SCH (10:00)
[2023-09-20] MEDS ORDERED: PANTOPRAZOLE 20 MG TABLET PO SCH (10:00)
[2023-09-20] MEDS: BACITRACIN 0.9 GM PACKET TP SCH (10:42)
[2023-09-20] MEDS ORDERED: PNEUMOC 20-VAL CONJ-DIP CRM/PF 0.5 ML SYRINGE IM ONE (12:00)
[2023-09-20] MEDS ORDERED: LACTULOSE 20 GM/30 ML UDC (FOR ORAL USE ONLY) PO SCH (14:45)
[2023-09-20 16:49] VITALS: RESP 16
[2023-09-20 21:23] VITALS: BP 136/80; PULSE 93; TEMP 98.4
[2023-09-20] MEDS ORDERED: QUEtiapine FUMARATE 100 MG TABLET (FP) PO SCH (22:00)
[2023-09-21] MEDS ORDERED: LORazepam 1 MG TABLET PO SCH (05:00)
[2023-09-22] MEDS ORDERED: LORazepam 0.5 MG TABLET PO PRN
[2023-09-22] MEDS ORDERED: LORazepam 0.5 MG TABLET PO SCH (05:00)
[2023-09-23] MEDS ORDERED: LORazepam 0.5 MG TABLET PO ONE (05:00)
== END 2023-09-20 22:16 | disposition left against medical advice (07) | DRG 770 ==
LOC: YASAS 12:29 → Y3N 14:56 → Y6N 09-20 20:44
PROVIDERS: ADMIT Allergy & Immunology; ATTEND Psychiatry & Neurology Pain Medicine
DX: F10.230 Alcohol dependence with withdrawal, uncomplicated (principal); F14.20 Cocaine dependence, uncomplicated; F17.210 Nicotine dependence, cigarettes, uncomplicated; F25.1 Schizoaffective disorder, depressive type; F19.282 Other psychoactive substance dependence with psychoactive substance-induced sleep disorder; F19.24 Other psychoactive substance dependence with psychoactive substance-induced mood disorder; E72.20 Disorder of urea cycle metabolism, unspecified; B20 Human immunodeficiency virus [HIV] disease; I10 Essential (primary) hypertension; J45.20 Mild intermittent asthma, uncomplicated; K21.9 Gastro-esophageal reflux disease without esophagitis; F91.8 Other conduct disorders; Z91.199 Patient's noncompliance with other medical treatment and regimen due to unspecified reason; Z88.8 Allergy status to other drugs, medicaments and biological substances
CPT/HCPCS: 36415; 82140; 86803; 87811

== ENCOUNTER 2024-02-05 11:38 | Inpatient (IN) | payer OTHER ==
[2024-02-05 11:54] VITALS: BMI 19.2
[2024-02-05] MEDS ORDERED: IBUPROFEN 400 MG TABLET (FP) PO PRN (12:40)
[2024-02-05] MEDS ORDERED: ONDANSETRON *ODT* 4 MG TABLET SL PRN (12:40)
[2024-02-05] MEDS ORDERED: BENZONATATE 200 MG CAPSULE PO PRN (12:40)
[2024-02-05] MEDS ORDERED: ACETAMINOPHEN 325 MG TABLET (FP) PO PRN (12:40)
[2024-02-05] MEDS ORDERED: MAG HYDROX/AL HYDROX/SIMETH 30 ML UNIT-DOSE CUP PO PRN (12:40)
[2024-02-05] MEDS ORDERED: POLYETHYLENE GLYCOL (HEALTHYLAX) 3350 17 GM PACKET PO PRN (12:40)
[2024-02-05] MEDS ORDERED: NALOXONE HCL 0.4 MG/ML VIAL IM PRN (12:40)
[2024-02-05] MEDS ORDERED: LOPERAMIDE HCL 2 MG CAPSULE PO PRN (12:40)
[2024-02-05] MEDS ORDERED: DICYCLOMINE HCL 10 MG CAPSULE PO PRN (12:40)
[2024-02-05] MEDS ORDERED: guaiFENesin 600 MG TABLET.ER (FP) PO PRN (12:40)
[2024-02-05] MEDS ORDERED: MAGNESIUM HYDROX 2400MG/30ML ORAL SUSPENSION 30 ML CUP PO PRN (12:40)
[2024-02-05] MEDS ORDERED: IBUPROFEN 600 MG TABLET (FP) PO PRN (12:40)
[2024-02-05] MEDS ORDERED: NALOXONE HCL (KLOXXADO) 8 MG SPRAY NS PRN (12:40)
[2024-02-05] MEDS ORDERED: BENZOCAINE/MENTHOL (CHLORASEPTIC ) LOZENGE MM PRN (12:40)
[2024-02-05] MEDS ORDERED: BISMUTH SUBSALICYLATE 262 MG/15 ML BTL PO PRN (12:40)
[2024-02-05] MEDS ORDERED: cloNIDine HCL 0.1 MG TABLET ONE (12:53)
[2024-02-05] MEDS: cloNIDine HCL 0.1 MG TABLET PO PRN (12:55)
[2024-02-05] MEDS ORDERED: ALBUTEROL SO4 HFA INHALER IH PRN (13:05)
[2024-02-05] MEDS: THIAMINE HCL 100 MG TABLET (FP) PO SCH (22:32)
[2024-02-05] MEDS: MELATONIN 5 MG TABLETS PO SCH (22:32)
[2024-02-05] MEDS: ROSUVASTATIN CA 20 MG TABLET PO SCH (22:32)
[2024-02-06] MEDS: BICTEGRAV/EMTRICIT/TENOFOV (BIKTARVY) 50-200-25 MG TABLET PO SCH (07:30)
[2024-02-06] MEDS: HYDROCHLOROTHIAZIDE 12.5 MG CAPSULE (FP) PO SCH (09:46)
[2024-02-06] MEDS: PRENATAL VITAMINS W/ FOLIC ACID TABLET (FP) PO SCH (09:46)
[2024-02-06] MEDS ORDERED: chlordiazePOXIDE HCL 25 MG CAPSULE PO PRN (09:59)
[2024-02-06] MEDS: chlordiazePOXIDE HCL 25 MG CAPSULE PO SCH (10:37)
[2024-02-06 11:53] LABS: HEMATOCRIT 35.1 % (35.4-49); HEMOGLOBIN 12.2 GM/dL (11.7-16.9); MCH 30.7 pg (25.7-33.7); MCHC 34.7 g/dl (32.0-35.9); MEAN CELL VOLUME 88.6 fl (80-96); MEAN PLT VOLUME 9.1 fl (7.5-11.1); PLATELET COUNT 210 10^3/uL (134-434); RBC 3.97 M/mm3 (4.00-5.60); RDW 14.5 % (11.9-15.9); WHITE BLOOD COUNT 5.5 K/mm3 (4.0-10.0)
[2024-02-06 12:09] LABS: CHLORIDE 108 mmol/L (98-107); POTASSIUM 3.6 mmol/L (3.5-5.1); SODIUM 141 mmol/L (136-145)
[2024-02-06 12:13] LABS: CALCIUM 8.4 mg/dL (8.5-10.1)
[2024-02-06 12:14] LABS: ALBUMIN 2.9 g/dl (3.4-5.0); ANION GAP 5 mmol/L (4-13); BLOOD UREA NITROGEN 16.4 mg/dL (7-18); CO2 28 mmol/L (21-32); GLUCOSE,RANDOM 86 mg/dL (74-106)
[2024-02-06 12:17] LABS: CREATININE 0.7 mg/dL (0.55-1.3); SGOT/AST 18 U/L (15-37); SGPT/ALT 15 U/L (13-61)
[2024-02-06 12:18] LABS: BILIRUBIN,TOTAL 0.4 mg/dL (0.2-1); TOT PROT 6.9 g/dl (6.4-8.2)
[2024-02-06 12:19] LABS: ALK PHOS 108 U/L (45-117)
[2024-02-08] MEDS: chlordiazePOXIDE HCL 25 MG CAPSULE PO SCH (05:57)
[2024-02-08] MEDS: hydrOXYzine PAMOATE 25 MG CAPSULE (FP) PO PRN (12:34)
[2024-02-08] MEDS: METHOCARBAMOL 500 MG TABLET PO PRN (12:34)
[2024-02-08] MEDS: MINERAL OIL/PETROLAT/WATER TOPICAL CREAM 113 GM JAR TP SCH (12:35)
[2024-02-08] MEDS: CLOTRIMAZOLE 1% CREAM TP SCH (12:35)
[2024-02-08] MEDS: LACTULOSE 20 GM/30 ML UDC (FOR ORAL USE ONLY) PO SCH (14:42)
[2024-02-08] MEDS: amLODIPine BESYLATE 2.5 MG TABLET (FP) PO SCH (14:42)
[2024-02-09] MEDS ORDERED: chlordiazePOXIDE HCL 10 MG CAPSULE PO PRN
[2024-02-09] MEDS: chlordiazePOXIDE HCL 10 MG CAPSULE PO SCH (05:44)
[2024-02-09] MEDS: ATORVASTATIN CA 10 MG TABLET (FP) PO SCH (22:02)
[2024-02-10] MEDS: chlordiazePOXIDE HCL 10 MG CAPSULE PO SCH ×2 (05:25→18:09)
[2024-02-10] MEDS: SULFAMETHOXAZOLE/TRIMETHOPRIM 800MG/160MG D.S. TABLET PO SCH (09:36)
[2024-02-10] MEDS: ERGOCALCIFEROL (VIT D2) 50,000 UNIT (1.25 MG) CAPSULE PO SCH (09:37)
[2024-02-10] MEDS: QUEtiapine FUMARATE 100 MG TABLET (FP) PO SCH (23:05)
[2024-02-11] MEDS: chlordiazePOXIDE HCL 10 MG CAPSULE PO ONE (05:35)
[2024-02-11 11:17] VITALS: BP 122/65; PULSE 84; RESP 18; TEMP 98.5
== END 2024-02-11 09:20 | disposition home or self-care (01) | DRG 774 ==
LOC: YASAS 11:38 → Y6N 12:32
PROVIDERS: ADMIT Allergy & Immunology; ATTEND Surgery
PROC: HZ2ZZZZ Detoxification Services for Substance Abuse Treatment (ICD-10-PCS; principal; 2024-02-05)
DX: F10.230 Alcohol dependence with withdrawal, uncomplicated (principal); F14.20 Cocaine dependence, uncomplicated; F13.20 Sedative, hypnotic or anxiolytic dependence, uncomplicated; F12.20 Cannabis dependence, uncomplicated; F17.210 Nicotine dependence, cigarettes, uncomplicated; F19.282 Other psychoactive substance dependence with psychoactive substance-induced sleep disorder; F25.9 Schizoaffective disorder, unspecified; B20 Human immunodeficiency virus [HIV] disease; E72.20 Disorder of urea cycle metabolism, unspecified; E78.2 Mixed hyperlipidemia; I10 Essential (primary) hypertension; K21.9 Gastro-esophageal reflux disease without esophagitis; B35.3 Tinea pedis; L85.3 Xerosis cutis; Z80.9 Family history of malignant neoplasm, unspecified; Z79.899 Other long term (current) drug therapy
CPT/HCPCS: 36415; 80053; 80305; 80307; 82140; 85027; 86780; 93005; 93010